=== PATIENT | female | born 1960 | race African-American/Black ===

== ENCOUNTER → 2016-10-31 | Outpatient (CLI) | payer BC ==
[~2016-10-31] MED LIST: ALPRAZOLAM PO; DIOVAN160 MG PO; FLAGYL PO; FLORASTOR250 M1 PO; HYDROCHLOROTH12.5 MG PO; NORVASC10 MG PO
--- NOTE | ~2016-10-31 | EKG ---
PATIENT: REJI VIEYRA UNIT #: [id number] Ventricular Rate: 62 BPM Atrial Rate: 62 BPM P-R Interval: 190 ms QRS Duration: 68 ms Q-T Interval: 392 ms QTC Calculation(Bezet): 397 ms P [place]: 69 degrees Calculated R [place]: 53 degrees Calculated T [place]: 69 degrees Diagnosis Line: Normal sinus rhythm Diagnosis Line: Septal infarct , age undetermined Diagnosis Line: Abnormal ECG Diagnosis Line: When compared with ECG of 06-AUG-2014 10:58, Diagnosis Line: Septal infarct is now Present Diagnosis Line: Confirmed by DENISE TELLEZ MD ([id number]) on 11/01/2016 Diagnosis Line: 7:27:20 PM INTERPRETING MD: GEOFF SETH
--- NOTE | ~2016-10-31 | CR63 ---
[facility] A Service of [facility] & [facility] RADIOLOGY TEXT RESULTS PATIENT: REJI VIEYRA LOCATION: [facility] : 56 UNIT #: [id number] AGE: [address]: Benigno Caldwell MD SEX: F ORDER DR: [id number] [facility] [address] [place], [place] [address] [id number] O MR#: [id number] Acc #: [id number] NAME: REJI VIEYRA : 1960 SEX: F STUDY DATE/TIME: 10/31/2016 13:25 UNIT: [facility] ROOM: STUDY DESCRIPTION: CR Chest 2 View Attending Physician: Benigno Caldwell M.D. Ordering Physician: Benigno Caldwell M.D. Primary Care Physician: [place] Chan M.D. MEDICAL IMAGING REPORT This report is preliminary unless electronic signature is present EXAM Chest PA and lateral 10/31/2016 COMPARISON 06/26/2016 HISTORY Preop left total hip arthroplasty. FINDINGS PA and lateral views are obtained. The cardiovascular configuration is normal and the lungs are clear. CONCLUSION Normal chest. No change from prior studies. Dictated by... Donell Wilson M.D. THIS IS AN ELECTRONICALLY VERIFIED REPORT Donell Wilson M.D. at 11/01/2016 5:03 PM KASANDRA/thalia TD: 10/31/2016 16:13 JOB #: [id number] MEDICAL IMAGING REPORT COPY
[2016-10-31 13:18] LABS: HEMATOCRIT 39.3 % (35.0-45.0); HEMOGLOBIN 13.1 gm/dL (12.0-16.0); MEAN CELL VOLUME 89.5 FL (83-96); MEAN CORPUSCULAR HEMOGLOBIN 29.8 PG (28-34); MEAN CORPUSCULAR HGB CONC 33.2 g/dL (30-36); MEAN PLATELET VOLUME 7.3 FL (6.5-11.5); RED BLOOD COUNT 4.39 X10e (3.90-5.30); RED CELL DISTRIBUTION WIDTH 13.2 % (11.0-15.5); URINE APPEARANCE CLEAR; URINE BILIRUBIN NEG (NEG); URINE BLOOD NEG (NEG); URINE COLOR YELLOW; URINE GLUCOSE NEG (NEG); URINE KETONE NEG (NEG); URINE LEUKOCYTE ESTERASE 1+ (NEG); URINE NITRATE NEG (NEG); URINE PROTEIN NEG (NEG); URINE SPECIFIC GRAVITY 1.024 (1.003-1.035); URINE UROBILINOGEN 0.2 MG/DL (NEG); WHITE BLOOD COUNT 3.3 X10e3 (4.0-10.5)
[2016-10-31 13:20] LABS: URBCS1 AUWI 0-2 /[HPF] (0-2); URINE BACTERIA AUWI NEG (NEGATIVE); URINE SQUAMOUS EPITHELIAL CELL OCC /[HPF]
[2016-10-31 13:25] LABS: CULTURE INDICATED? NO; URINE SOURCE CLEAN CATCH
[2016-10-31 13:50] LABS: BUN/CREATININE RATIO 14.61; CALCIUM SERUM 9.7 mg/dL (8.4-10.2); CREATININE SERUM 1.3 mg/dL (0.6-1.4); GLOM FILT RATE Estimated 54.1 mL/min (>60); POTASSIUM 4.5 mmol/L (3.5-5.1)
== END | disposition home or self-care (01) ==
LOC: CEKG 12:24
PROVIDERS: Specialist
DX: Z01.818 Encounter for other preprocedural examination (principal); M16.12 Unilateral primary osteoarthritis, left hip; R94.31 Abnormal electrocardiogram [ECG] [EKG]
CPT/HCPCS: 36415; 71020; 80048; 81003; 83036; 85027; 93005